=== PATIENT | female | born 1955 | race Caucasian/White ===

== ENCOUNTER 2018-06-15 10:20 | Emergency (ER) | payer MEDICAID, OTHER | END 2018-06-15 10:59 | disposition home or self-care (01) | LOC: FTE 10:20 | DX: R21 Rash and other nonspecific skin eruption (principal) | CPT/HCPCS: 99283; Z7502 ==

== ENCOUNTER 2018-09-30 15:58 | Emergency (ER) | payer SELFPAY, MEDICAID ==
[2018-09-30 19:23] LABS: ADD MAN DIFF? NO
[2018-09-30 19:25] LABS: WHITE BLOOD COUNT 13.4 10^3/ul (4.8-10.8)
[2018-09-30 19:25] LABS: BASOPHIL # 0.1 10^3/ul (0.0-0.1); BASOPHILS % 0.4 % (0.0-2.0); EOSINOPHILS # 0.3 10^3/ul (0.0-0.5); EOSINOPHILS % 2.2 % (0.0-7.0); HEMATOCRIT 40.5 % (37.0-47.0); HEMOGLOBIN 12.9 g/dl (12.0-16.0); LYMPHOCYTES # 2.8 10^3/ul (0.8-2.9); LYMPHOCYTES % 21.1 % (15.0-51.0); MEAN CORPUSCULAR HEMOGLOBIN 29.1 pg (29.0-33.0); MEAN CORPUSCULAR HGB CONC 31.9 g/dl (32.0-37.0); MEAN CORPUSCULAR VOLUME 91.2 fl (82.0-101.0); MEAN PLATELET VOLUME 8.4 fl (7.4-10.4); MONOCYTE # 0.8 10^3/ul (0.3-0.9); MONOCYTES % 5.8 % (0.0-11.0); NEUTROPHIL # 9.4 10^3/ul (1.6-7.5); NEUTROPHILS % 70.1 % (39.0-77.0); PLATELET COUNT 351 10^3/UL (140-415); RED BLOOD COUNT 4.44 10^6/ul (4.20-5.40); RED CELL DISTRIBUTION WIDTH 12.3 % (11.5-14.5)
[2018-09-30 19:51] LABS: URINE BLOOD (Dip) POC 2+ (NEGATIVE); URINE GLUCOSE (Dip) POC Negative (NEGATIVE); URINE KETONES (Dip) POC Negative (NEGATIVE); URINE LEUKOCYTE EST (Dip) POC 2+ (NEGATIVE); URINE NITRITE (Dip) POC Negative (NEGATIVE); URINE TOTAL PROTEIN POC Trace (NEGATIVE)
[2018-09-30 19:51] LABS: URINE PH (Dip) POC 6.5 (5.0-8.5)
== END 2018-09-30 21:10 | disposition home or self-care (01) ==
LOC: FTE 15:58
DX: J06.9 Acute upper respiratory infection, unspecified (principal); N39.0 Urinary tract infection, site not specified
CPT/HCPCS: 71045; 81003; 85025; 87086; 99284-25